=== PATIENT | female | born 1990 | race Caucasian/White ===

== ENCOUNTER 2022-07-07 18:59 | Emergency (ER) | payer OTHER, SELFPAY ==
[2022-07-07 19:49] VITALS: BP 118/84; PULSE 87; RESP 20; TEMP 36.6; O2SAT 98; BMI 22.4
--- NOTE | 2022-07-07 19:49 | ED.WOUNDLAC ---
HPI - Wound/Laceration General Chief Complaint: Wound/Laceration Stated Complaint: laceration left hand Time Seen by Provider: 07/07/22 20:06 Source: patient Mode of arrival: ambulatory Limitations: no limitations History of Present Illness HPI narrative: Patient is a 32-year-old female presenting to emergency department for evaluation laceration. She is right hand dominant. Reports that she cut the tip of left second digit with scissors [employer]. She was making a wreath with pinecones that were covered in dirt, concerned about contamination. Reports TDAP < 5 years ago. Able to flex and extend the finger. Denies numbness or tingling Related Data Allergies Allergy/AdvReac Type Severity Reaction Status Date / Time No Known Allergies Allergy Verified 07/07/22 20:00 Review of Systems Review of Systems: Skin: Positive laceration as noted in HPI Yes all other systems are reviewed and are negative [facility] Past Medical History Attestation statement: The following information was validated with the patient. Source: old records reviewed Physical Exam Vital Signs: Vital Signs: Last Vital Signs Temp 98 F 07/07/22 19:49 Pulse 87 07/07/22 19:49 Resp 20 07/07/22 19:49 BP 118/84 07/07/22 19:49 Pulse Ox 98 07/07/22 19:49 O2 Del Method 07/07/22 19:49 BMI result Body Mass Index 22.4 Appearance: Alert.?Oriented to person, place and time. No acute distress.?Normal affect. Neck: Normal inspection.? Neck supple.?? CVS: Heart sounds normal. Normal heart rate and rhythm.? Pulses normal.?? Respiratory: No respiratory distress.? Lung sounds clear to auscultation bilaterally?? Abdomen: Soft and non-tender. Skin: Skin warm and dry.? Normal skin color.? Extremities: No lower extremity edema.?1cm linear laceration to distal tip of left second digit, palar access, edges well approximated, no active bleeding Neuro: Moves all extremities spontaneously. Sensation intact bilaterally. . Ambulates with normal steady gait. Course Course Course Narrative: Patient is a 32 year old female who presents to the ED for a laceration of left hand second digit. Upon examination edges are well approximated, bleeding controlled. cleansed with normal saline. Closure with skin glue. Tolerated procedure well. Discussed management, worrisome signs or symptoms to have re-evaluation for including infection. Outpatient follow-up with primary care provider as needed. Tdap was updated. All questions answered, she was discharged in stable condition Medications Administered Discontinued Medications Generic Name Dose Route Start Last Admin Trade Name Alden PRN Reason Stop Dose Admin Diphtheria/Tetanus/Acell Pertussis 0.5 ml 07/07/22 20:00 07/07/22 20:04 Diphth,Pertus(Acell),Tet Adult 0.5 Ml Syringe IM 07/07/22 20:01 0.5 ml .ONCE ONE Administration MDM - Wound/Laceration Medical Records Attestation: I reviewed the patient's medical records. Discharge Plan Discharge Clinical Impression: Laceration of finger Qualifiers: Encounter type: initial encounter Finger: index finger Damage to nail status: without damage Laterality: left Patient Disposition: Home, Self-Care Additional Instructions: Keep the area clean and dry for 48 hours. Avoid touching for the first 24 hours You can take ibuprofen 200 mg, 3 tablets (600mg) every 6-8 hours as needed for pain, in addition to Tylenol 500 mg, 2 tablets (1,000mg) every 4-6 hours as needed for pain, but not to exceed 3 doses daily (3,000mg).? Return to ER for any new/ worsening symptoms or concerns. Redness, fevers, chills, pus like drainage or swelling should be re-evaluated. Referrals: ED Physician,Generic [Physician] - Physician,Unknown J [Primary Care Provider] -
[2022-07-07] MEDS: Diphth,Pertus(ACell),Tet Adult 0.5 ML SYRINGE IM (20:04)
== END 2022-07-07 20:20 | disposition home or self-care (01) ==
LOC: HO.ED 20:11
PROVIDERS: Emergency Provider Emergency Medicine
DX: S61.211A Laceration without foreign body of left index finger without damage to nail, initial encounter (principal); W27.2XXA Contact with scissors, initial encounter; Y93.D9 Activity, other involving arts and handcrafts; Y92.009 Unspecified place in unspecified non-institutional (private) residence as the place of occurrence of the external cause; Y99.9 Unspecified external cause status
CPT/HCPCS: 12001; 90471; 90715; 99282; 99284